=== PATIENT | male | born 1995 ===

== ENCOUNTER 2023-05-08 20:19 | Emergency (ER) | payer OTHER, SELFPAY ==
[2023-05-08 20:23] VITALS: BP 159/102; PULSE 104; RESP 18; TEMP 36.4; O2SAT 97; BMI 37.2
--- NOTE | 2023-05-08 21:33 | PC.NURSE ---
Pt reports left middle back pain x2 weeks. No known trauma, no heavy lifting, no sudden twisting. Pt denies urinary symptoms, denies hx of kidney stones. Pt reports it feels muscular 4/10 pain at this time. Walking with steady gait
[2023-05-08] MEDS: Ketorolac Tromethamine 15 MG/ML VIAL 30 MG IM (22:00)
[2023-05-08] MEDS: Lidocaine 4 % Patch ADH..PATCH 1 PATCH TRANSDERMA (22:01)
--- NOTE | 2023-05-08 22:13 | ED.BACK ---
HPI - Back Pain/Injury General Chief Complaint: Back Pain/Injury Stated Complaint: Back pain Time Seen by Provider: 05/08/23 21:35 Source: patient Mode of arrival: ambulatory Limitations: no limitations History of Present Illness HPI Narrative: 28-year-old male presents with complaints of left lower back pain times a few days worsening, intermittently radiates to left buttocks region, patient reports he works at [employer] and thinks that this may have started after lifting a box of heavy chicken nuggets that weighs 20-30 lb. Pain is worse with movement better at rest. Patient ambulatory into room without difficulty. Patient denies numbness, tingling, urinary/bowel incontinence/retention, fevers, chills, saddle paresthesias, chest pain, shortness of breath, urinary symptoms. Related Data Previous Rx's Medication Instructions Recorded cyclobenzaprine 10 mg tablet 10 mg PO BEDTIME PRN muscle spasm 05/08/23 #7 tabs ketorolac 10 mg tablet 10 mg PO TID PRN pain 5 days #15 05/08/23 tabs lidocaine 5 % topical patch 1 patch topical DAILY PRN pain #15 05/08/23 ea Allergies Allergy/AdvReac Type Severity Reaction Status Date / Time No Known Allergies Allergy Verified 05/08/23 20:23 Review of Systems Review of Systems: Constitutional : No Weight loss, No Fever, No Chills, ENT/Mouth : No Hearing loss, No Ear Pain, No Nasal Congestion, No Sinus Pain, No Hoarseness, No sore throat, No Rhinorrhea, No Swallowing Difficulty Cardiovascular : No Chest Pain, No SOB Respiratory : No Cough, No Dyspnea Gastrointestinal : No Nausea, No Vomiting, No Diarrhea, No abdominal Pain, No Hematochezia, No Melena Genitourinary : No Dysuria, No Urinary Frequency, No Hematuria, No Urinary Incontinence, Musculoskeletal : positive back pain Skin : No Skin Lesions, No rash Neuro : No Weakness, No Numbness, No Paresthesias, no loss of bowel or bladder incontinence, no saddle anesthesia Yes all other systems are reviewed and are negative PMFSH Past Medical History Attestation statement: The following information was validated with the patient. Source: old records reviewed and nursing notes reviewed Social History Social History Advance Directives: No Advance Directives Information Provided: Yes Physical Exam Vital Signs: Vital Signs: Last Vital Signs Temp 98.6 F 05/08/23 22:17 Pulse 76 05/08/23 22:17 Resp 16 05/08/23 22:17 BP 134/79 05/08/23 22:17 Pulse Ox 99 05/08/23 22:17 O2 Del Method Room Air 05/08/23 22:17 BMI result Body Mass Index 37.2 Slight hypertension likely secondary to pain. Appearance: Alert.? Oriented X3.? No acute distress.? Head: Normocephalic, atraumatic, no step-offs or deformities Eyes: Pupils equal, round and reactive to light.? CVS: Normal heart rate and rhythm.? Pulses normal.? Respiratory: No respiratory distress.? Breath sounds normal.? Abdomen: Soft and nontender.? Skin: Skin warm and dry.? Normal skin color.? Normal skin turgor.? Extremities: No lower extremity edema.? No calf ttp. 5/5 strength to bilateral upper and lower extremities Back: No midline tenderness, no C-spine tenderness, full range of motion, no CVA tenderness bilaterally + left-sided lumbar paraspinous tenderness throughout. Neuro: Oriented X 3.? No motor deficit.? No sensory deficit. CN 2-12 intact . No saddle paresthesias. Normal strength to lower extremities. Ambulating with steady gait normal coordination. Course Reevaluation(s) Reevaluation #1: Patient reports some improvement to nursing with medications. I did discuss discharge instructions with him. Will give him follow-up with [facility]. Will discharge home on Toradol, cyclobenzaprine and Lidoderm. Educated patient on diagnosis and treatment plan, answered all question, patient verbalizes understanding. At this time patient will be discharged home, advised to return with new or worsening symptoms. Educated on worrisome signs and symptoms and when to return. At this time I feel comfortable discharge home. Time: 22:56 Reevaluation #2: UA - Medications Administered Discontinued Medications Generic Name Dose Route Start Last Admin Trade Name Mariuszq PRN Reason Stop Dose Admin Ketorolac Tromethamine 30 mg 05/08/23 21:55 05/08/23 22:00 Ketorolac Tromethamine 15 Mg/Ml Vial IM 05/08/23 21:56 30 mg ONCE ONE Administration Lidocaine 1 patch 05/08/23 21:55 05/08/23 22:01 Lidocaine 4 % Patch Adh..Patch TRANSDERMA 05/08/23 21:56 1 patch ONCE ONE Administration Protocol Medical Decision Making Medical Decision Making [facility] Narrative: 1016 28-year-old male presents with left-sided lower back pain times a few days contributes this to possibly heavy lifting at work. No red flags Physical exam with left-sided lumbar paraspinous tenderness throughout, no midline tenderness. Neurological assessment nonfocal. No saddle paresthesias. Ambulatory. Likely lumbar paraspinous muscle spasm versus lumbar strain versus lumbar radiculopathy. Unlikely cauda equina, epidural abscess, cord compression. Atraumatic unlikely fracture dislocation. Unlikely pyelonephritis, kidney stone. Plan Lidoderm patch, Toradol in urine. Differential Diagnosis Differential Diagnoses: The differential diagnosis associated with the presentation includes Likely lumbar paraspinous muscle spasm versus lumbar strain versus lumbar radiculopathy. Unlikely cauda equina, epidural abscess, cord compression. Atraumatic unlikely fracture dislocation. Unlikely pyelonephritis, kidney stone. Admission/Observation Consideration of admission/observation: Escalation of care including admission/observation considered No indication Lab Data [facility] Lab Attestation statement: I reviewed the patient's lab results. Labs: Lab Results 05/08/23 Range/Units 22:40 Urine Color Yellow Urine Appearance Clear Urine pH 7.5 (5.0-9.0) Ur Specific [place] 1.015 (1.005-1.025) Urine Protein Negative (Neg-Trace) mg/dL Urine Glucose (UA) Negative (Negative) mg/dL Urine Ketones Negative (Negative) mg/dL Urine Blood Negative (Negative) Urine Nitrite Negative (Negative) Ur Leukocyte Esterase Negative (Negative) Tests considered The following testing was considered but not selected: Atraumatic, no red flag symptoms no indication for x-ray, MRI. I do not suspect nephrolithiasis or pyelonephritis no indication for CT. Prescription Management I considered prescription management with: Pain Medication Critical Care Time Critical Care Time Critical Care Time: No Discharge Plan Discharge Clinical Impression: Lumbar radiculopathy Patient Disposition: Home, Self-Care Instructions: Lumbar Radiculopathy (ED), Back Pain (ED) Additional Instructions: Take your medications as prescribed. If you were prescribed antibiotics today, it is important that you take your medication to their entirety, do not skip any doses, do not finish them early. Follow-up with your primary care provider this week. Return to the emergency department with new or worsening symptoms. Such as fevers, chills, chest pain, shortness of breath, nausea, vomiting, dizziness, headache, vision changes, lethargy In case of emergency call 911 Cyclobenzaprine as a muscle relaxer can make you sleepy do not mix with alcohol, sedatives or other medications that make you tired Toradol has been sent to your pharmacy, you tolerated this well in the department. Please take this as prescribed do not take this with ibuprofen, or other NSAIDs, do not mix this with alcohol. Side effects of this medication including increased risk for bleeding and possible kidney injury. Prescriptions: New cyclobenzaprine 10 mg tablet 10 mg PO BEDTIME PRN (Reason: muscle spasm) Qty: 7 0RF ketorolac 10 mg tablet 10 mg PO TID PRN (Reason: pain) 5 Days Qty: 15 0RF lidocaine 5 % adhesive patch,medicated 1 patch topical DAILY PRN (Reason: pain) Qty: 15 0RF Rx Instructions: leave on most painful area for up to 12 hrs Referrals: [facility] [Provider Group] - 1 week Physician,None [Primary Care Provider] - 2 days Stand Alone Forms: Work/School Release
[2023-05-08 22:17] VITALS: BP 134/79; PULSE 76; RESP 16; TEMP 37; O2SAT 99
[2023-05-08 22:52] LABS: Appearance Urine Clear; Color Urine Yellow; Glucose Urine UA Negative (Negative); Leukocyte Esterase Urine Negative (Negative); Nitrite Urine Negative (Negative); PH 7.5 (5.0-9.0); Specific Gravity - Urine 1.015 (1.005-1.025); Urine Blood Negative (Negative); Urine Ketones Negative (Negative); Urine Protein Negative (Neg-Trace)
== END 2023-05-08 23:13 | disposition home or self-care (01) ==
PROVIDERS: Physician Assistant; Emergency Provider Student in an Organized Health Care Education/Training Program
DX: M54.16 Radiculopathy, lumbar region (principal)
CPT/HCPCS: 81003; 96372; 99284; J1885

== ENCOUNTER 2024-04-26 16:57 | Emergency (ER) | payer SELFPAY ==
--- NOTE | ~2024-04-26 | XR_ITS ---
EXAMINATION: XR FOOT, LEFT CLINICAL INFORMATION: Diffuse pain, no known injury. COMPARISON: None available. TECHNIQUE: AP, lateral, and oblique views of the left foot. FINDINGS: No acute fracture or subluxation. No aggressive appearing osseous findings. Diffuse nonspecific soft tissue swelling/thickening. XR/XR foot LT min 3V IMPRESSION: 1. No acute fracture or malalignment. 2. Diffuse nonspecific soft tissue swelling/thickening. Electronically signed by: Carlee Olsen MD 04/26/2024 05:37 PM EDT
[2024-04-26 17:08] VITALS: BP 139/85; PULSE 98; RESP 18; TEMP 36.7; O2SAT 99; BMI 38.1
--- NOTE | 2024-04-26 17:08 | ED.LOWEXIN ---
HPI - Extremity Injury (Lower) General Chief Complaint: Extremity Injury, Lower Stated Complaint: L foot pain and swelling Time Seen by Provider: 04/26/24 21:03 Source: patient and old records reviewed Mode of arrival: ambulatory Limitations: no limitations History of Present Illness ED Provider: IVETTE MARTÍNEZ Narrative: 29 yo male with no PMH does not have a PCP here with c/o L great toe pain and hard to walk with some mild redness and swelling denies trauma or puncture to the area. He notes he has not had this before but his dad has gout. He can barely put weight on it. It is very painful. He had to buy his own crutches. Symptoms started and worsened. MD complaint: other (foot pain/toe pain) Onset (ago): day(s) () Injury: Left: foot Place: home Severity: severe Relieving factors: immobilization Exacerbating factors: weight bearing and palpation Context: other Associated symptoms: swelling Other symptoms: none Related Data Previous Rx's ?Medication ?Instructions ?Recorded cyclobenzaprine 10 mg tablet 10 mg PO BEDTIME PRN muscle spasm 05/08/23 #7 tabs ketorolac 10 mg tablet 10 mg PO TID PRN pain 5 days #15 05/08/23 tabs lidocaine 5 % topical patch 1 patch topical DAILY PRN pain #15 05/08/23 ea morphine 15 mg immediate release 15 mg PO Q6H PRN pain #12 tabs 04/26/24 tablet prednisone 20 mg tablet 40 mg (2 x 20 mg) PO DAILY 4 days 04/26/24 #8 tabs Allergies Allergy/AdvReac Type Severity Reaction Status Date / Time No Known Allergies Allergy Verified 04/26/24 17:10 Review of Systems Review of Systems: Constitutional : No Fever, No Chills ENT/Mouth : No Ear Pain, No Hoarseness, No sore throat Eyes: No Eye Pain, No Swelling, No Redness, No Foreign Body Cardiovascular : No Chest Pain, No SOB Respiratory : No Cough, No Dyspnea Gastrointestinal : No Nausea, No Vomiting, No Diarrhea, No abdominal Pain Genitourinary : No Dysuria, No Hematuria Musculoskeletal : positive joint pain, No Myalgias, pos Joint Swelling Skin : No Skin lacerations, No rash Neuro : No Weakness, No Numbness, No Loss of Consciousness, No Dizziness, No Headache All other systems reviewed and are negative PMFSH Past Medical History Attestation statement: The following information was validated with the patient. Medical History No pertinent past medical history Social History Social History (Updated 04/26/24 @ 21:33 by Jojo Loza DO) Patient Tobacco Use Status: Never used Tobacco Physical Exam Vital Signs: Vital Signs: Last Vital Signs Temp 98 F 04/26/24 20:33 Pulse 96 04/26/24 20:33 Resp 20 04/26/24 20:33 BP 140/86 H 04/26/24 20:33 Pulse Ox 99 04/26/24 20:33 O2 Del Method Room Air 04/26/24 20:33 BMI result Body Mass Index 38.1 Appearance: Alert. Oriented X3. No acute distress. Eyes: Pupils equal, round and reactive to light. ENT: Pharynx normal. Neck: Normal inspection. Neck supple. CVS: Normal heart rate and rhythm. Pulses normal. Respiratory: No respiratory distress. Breath sounds normal. Abdomen: Soft and nontender. Skin: Skin warm and dry. Normal skin color. Normal skin turgor. Extremities: No lower extremity edema. L foot DP and PT pulses 2+ no signs of open skin or contusion, SILT Intact, L great toe MTP joint swelling and mild erythema with mild warmth very tender to touch but no extension of inflammation Neuro: Oriented X 3. No motor deficit. No sensory deficit. Course Course Course Narrative: This is an RME performed by Jerson Mensah CNP: Additional HPI, ROS, PE not included below will be deferred to primary provider. Patient is a 29-year-old male who presents to the emergency department for evaluation of left foot pain. He reports 4-5 days with pain diffusely to the bottom of the foot is now having numbness to the dorsal portion of his foot. Pain radiates to the bilateral sides of his ankle. Does not require precipitating injury. Denies history of diabetes. Medical Decision Making Medical Decision Making [facility] Narrative: 29 yo male with no sig PMH here with c/o L great toe pain on exam pulses are intact denies trauma exam no overt cellulitis or abscess looks more like gout clinically at this time labs and xray ordered will start on steroids and PO pain control instructed him to follow up with PCP Differential Diagnosis Differential Diagnoses: The differential diagnosis associated with the presentation includes gout, trauma, cellulitis Admission/Observation Consideration of admission/observation: Escalation of care including admission/observation considered can be managed with outpatient course of steroids Lab Data [facility]DM Lab Attestation statement: I reviewed the patient's lab results. 04/26/24 19:28 04/26/24 19:28 Labs: Lab Results 04/26/24 Range/Units 19:28 WBC 11.5 H (4.8-10.8) X10*3/uL RBC 5.58 (4.60-5.80) X10*6/uL Hgb 16.3 (14.0-18.0) g/dl Hct 45.5 (42.0-52.0) % MCV 81.5 (80.0-98.0) fL MCH 29.2 (27.0-33.0) pg MCHC 35.8 (31.0-36.0) g/dl RDW 12.1 (11.0-16.0) % Plt Count 187 (160-400) X10*3/uL MPV 11.6 (9.4-12.4) fL Immature Gran % (Auto) 0.3 (0.0-0.4) % Neut % (Auto) 76.3 H (45-73) % Lymph % (Auto) 15.8 L (20-40) % Angelina % (Auto) 6.8 (2-11) % Eos % (Auto) 0.3 (0-4) % Baso % (Auto) 0.5 (0-2) % Lymph # (Auto) 1.8 (1.2-4.9) X10*3/uL Angelina # (Auto) 0.8 (0.1-1.2) X10*3/uL Eos # (Auto) 0.0 (0.0-0.4) X10*3/uL Baso # (Auto) 0.1 (0.0-0.2) X10*3/uL Abs Immat Gran (auto) 0.03 (0.00-0.03) X10*3/uL Absolute Neuts (auto) 8.8 H (2.0-8.3) x10*3/uL Absolute Nucleated RBC 0.000 (0.0-0.012) X10*3/uL Nucleated RBC % (auto) 0.0 (0.0-0.2) /100WBC Sodium 138 (135-145) mmol/L Potassium 4.4 (3.3-5.1) mmol/L Chloride 103 (96-108) mmol/L Carbon Dioxide 26 (22-29) mmol/L Anion Gap 13 (12-20) BUN 13 (9-16) mg/dL Creatinine 1.16 (0.5-1.4) mg/dL Estim Creat Clear Calc 109.2 Estimated GFR > 60 Random Glucose 118 H (60-115) mg/dL Uric Acid 10.1 H (3.4-7.0) mg/dL Calcium 10.4 H (8.4-10.2) mg/dL Total Bilirubin 1.1 H (0.0-1.0) mg/dL AST 19 (5-37) U/L ALT 39 (0-40) U/L Alkaline Phosphatase 83 (39-117) U/L C-Reactive Protein 1.75 H (< or = 0.50) mg/dL Total Protein 8.7 H (6.5-8.0) g/dL Albumin 4.8 (3.5-5.0) g/dL Independent Interpretation I performed an independent interpretation of an: Plain X-Ray (no fx) Radiology Impression Discussion of test interpretation with radiology: I have reviewed the radiologist's reading. Prescription Management I considered prescription management with: Pain Medication and Other Discharge Plan Discharge Clinical Impression: Gout Qualifiers: Gout site: toe Gout etiology: unspecified cause Chronicity: acute Laterality: left Qualified Code(s): M10.9 - Gout, unspecified Patient Disposition: Home, Self-Care Instructions: Low Purine Diet (ED), Gout (ED) Additional Instructions: return for any fevers, redness that is going up the foot, worsening pain, swelling or any other concerns follow up and get a primary care doctor please use crutches rest and elevate Prescriptions: New prednisone 20 mg tablet 40 mg PO DAILY 4 Days Qty: 8 0RF morphine 15 mg tablet 15 mg PO Q6H PRN (Reason: pain) Qty: 12 0RF Rx Instructions: partial fill okay; Partial Fill upon patient request. No Action cyclobenzaprine 10 mg tablet 10 mg PO BEDTIME PRN (Reason: muscle spasm) Qty: 7 0RF ketorolac 10 mg tablet 10 mg PO TID PRN (Reason: pain) 5 Days Qty: 15 0RF lidocaine 5 % adhesive patch,medicated 1 patch topical DAILY PRN (Reason: pain) Qty: 15 0RF Rx Instructions: leave on most painful area for up to 12 hrs Stand Alone Forms: Work/School Release Print Language: Serbian
[2024-04-26 19:34] LABS: Basophils Absolute Auto 0.1 X10*3/uL (0.0-0.2); Basophils Percent Auto 0.5 % (0-2); Eosinophils Percent Auto 0.3 % (0-4); Hematocrit 45.5 % (42.0-52.0); Hemoglobin 16.3 g/dl (14.0-18.0); Imm Gran Abs Auto 0.03 X10*3/uL (0.00-0.03); Imm Gran Pct Auto 0.3 % (0.0-0.4); Lymphocytes Absolute Auto 1.8 X10*3/uL (1.2-4.9); Lymphocytes Percent Auto 15.8 % (20-40); MANUAL DIFF FLAG NO; Mean Corpuscular HGB Conc 35.8 g/dl (31.0-36.0); Mean Corpuscular Hemoglobin 29.2 pg (27.0-33.0); Mean Corpuscular Volume 81.5 fL (80.0-98.0); Mean Platelet Volume 11.6 fL (9.4-12.4); Monocytes Absolute Auto 0.8 X10*3/uL (0.1-1.2); Monocytes Percent Auto 6.8 % (2-11); Neutrophils Absolute Auto 8.8 x10*3/uL (2.0-8.3); Neutrophils Percent Auto 76.3 % (45-73); Platelet Count 187 X10*3/uL (160-400); Red Blood Count 5.58 X10*6/uL (4.60-5.80); Red Cell Distribution Width 12.1 % (11.0-16.0); White Blood Count 11.5 X10*3/uL (4.8-10.8)
[2024-04-26 19:50] LABS: Alanine Aminotransferase 39 U/L (0-40); Albumin Level 4.8 g/dL (3.5-5.0); Alkaline Phosphatase 83 U/L (39-117); Anion Gap 13 (12-20); Aspartate Amino Transferase 19 U/L (5-37); Bilirubin Total 1.1 mg/dL (0.0-1.0); Blood Urea Nitrogen 13 mg/dL (9-16); C Reactive Protein 1.75 mg/dL (< or = 0.50); Calcium 10.4 mg/dL (8.4-10.2); Carbon Dioxide 26 mmol/L (22-29); Chloride 103 mmol/L (96-108); Creatinine Clr Calc Pharmacy 109.2; Estimated Glomerular Filt Rate > 60; Glucose Random 118 mg/dL (60-115); Potassium 4.4 mmol/L (3.3-5.1); Sodium 138 mmol/L (135-145); Total Protein 8.7 g/dL (6.5-8.0); Uric Acid 10.1 mg/dL (3.4-7.0)
[2024-04-26 20:33] VITALS: BP 140/86; PULSE 96; RESP 20; TEMP 36.6; O2SAT 99
[2024-04-26 21:36] VITALS: BP 140/86; PULSE 96; RESP 20; TEMP 36.6; O2SAT 99
[2024-04-26] MEDS: predniSONE 20 MG TABLET 40 MG PO (21:41)
[2024-04-26] MEDS: Morphine Sulfate Immed Release 15 MG TABLET PO (21:41)
== END 2024-04-26 21:44 | disposition home or self-care (01) ==
PROVIDERS: Nurse Practitioner Family; Emergency Provider Emergency Medicine
DX: M10.072 Idiopathic gout, left ankle and foot (principal); R60.0 Localized edema; M79.675 Pain in left toe(s); Z79.899 Other long term (current) drug therapy
CPT/HCPCS: 36415; 73630; 80053; 84550; 85025; 86140; 99283